=== PATIENT | male | born 1960 | race Asian ===

== ENCOUNTER 2022-05-07 08:19 | Emergency (ER) | payer OTHER ==
[~2022-05-07] VITALS: Ht 162.6 cm; Wt 54.3 kg
[2022-05-07 09:20] LABS: Basophils # (auto) 0 10 ^3/uL (0-0.2); Basophils % (auto) 1.3 % (0.0-2.0); Eosinophils # (auto) 0 10 ^3/uL (0-0.8); Eosinophils % (auto) 1.1 % (0.0-7.0); Hematocrit 39.9 % (41.0-53.0); Hemoglobin 13.2 g/dL (13.5-17.5); Lymphocytes # (auto) 0.7 10 ^3/uL (0.4-5.4); Lymphocytes % (auto) 26.8 % (10.0-50.0); Mean Corpuscular Hemoglobin 31.3 pg (28.0-32.0); Mean Corpuscular Hgb Conc. 33.1 g/dL (32.0-36.0); Mean Corpuscular Volume 94.3 fL (80.0-100.0); Monocytes # (auto) 0.2 10 ^3/uL (0-1.3); Neutrophils # (auto) 1.6 10 ^3/uL (1.6-8.6); Neutrophils % (auto) 61.8 % (37.0-80.0); Red Blood Cells 4.23 10^6/uL (4.5-5.90); Red Cell Distribution Width 12.8 % (11.8-14.3); White Blood Cell 2.6 10^3/uL (4.4-10.8)
[2022-05-07 09:24] LABS: Urine Bacteria NONE SEEN /hpf (None Seen); Urine Blood TRACE /uL (Negative); Urine WBC <1 /hpf (0 - 3)
[2022-05-07 09:35] LABS: Albumin 4.1 g/dL (3.4-5.0); Calcium 8.9 mg/dL (8.5-10.1); Potassium 4.1 mmol/L (3.5-5.1)
[2022-05-07 09:39] LABS: BUN/Creatinine Ratio 27.7; Bilirubin, Total 0.7 mg/dL (0.2-1.0); Total Protein 7.6 g/dL (6.4-8.2)
[2022-05-07] MEDS ORDERED: TAM04C PO (10:49)
[2022-05-07] MEDS ORDERED: HYDROcodone-ACET 5/325MG TAB PO ONE (11:00)
[2022-05-07 11:04] VITALS: BP 144/87
== END 2022-05-07 11:04 | disposition home or self-care (01) ==
LOC: ER 08:19
DX: N20.0 Calculus of kidney (principal); N28.1 Cyst of kidney, acquired
CPT/HCPCS: 36415; 74176; 80053; 81001; 85025; 93005

== ENCOUNTER → 2025-03-17 | Day surgery (SDC) | payer MEDICARE, MEDICAID ==
[~2025-03-17] VITALS: Ht 162.6 cm; Wt 56.7 kg
[~2025-03-17] MED LIST: B-COCAP34 OR; COEN30CA7 PO; LIDOCAINE 2% (LOCAL ANESTH.) PF 5ml SDV ONE; METOCLOPRAMIDE HCL 5MG/ml INJ 2ml VIAL ONE; ONDANSETRON HCL 4 MG/2 ML VIAL ONE; PROPOFOL 10 MG/ML 20 ML IV ONE; [UNRECOGNIZED DRUG - CODE] PO
--- NOTE | 2025-03-17 08:22 | DVHHP2 ---
GI H&P Pre-Op Assessment Date: 03/17/25 Chief complaint: abdominal pain HPI: per clinic note Past medical history: per clinic note Past surgical history: per clinic note Family history: per clinic note Physical exam: General: NAD, AAOX3 HEENT: PERRL, no scleral icterus, normal hearing, gums without lesions or bl eeding, oropharynx clear without erythema or exudate. Neck: Supple without enlargement of the thyroid, or lymphadenopathy. Chest: Normal size and shape, no tenderness, lung oropeza clear to auscultation and percussion, nonlabored breathing. Heart: RRR, no murmur Abdomen: non-distended, no tenderness to palpation, +BS, no hepatosplenomegaly Extremities: no edema Neurological: CN II-XII intact, sensation intact in all extremities, 5+ strength in all extremities Skin: No rashes, No jaundice Assessment: - abdominal pain Plan: - EGD - Risks (bleeding, infection, perforation, reaction to sedation medications and cardiopulmonary arrest) and benefit of the procedure were explained to patient. Patient agrees to undergo the procedure. BLANQUITA BAILEY MD Mar 17, 2025 08:22
[2025-03-17 08:23] VITALS: PULSE 66; RESP 15; TEMP 97.6; O2SAT 96
--- NOTE | 2025-03-17 08:24 | DVHOP2 ---
Operative Report DATE OF OPERATION: 03/17/25 PROCEDURE: Upper Endoscopy. PREOPERATIVE INDICATION: The patient is a 64 -year-old male undergoing endoscopy for epigastric and RUQ pain. POSTOPERATIVE DIAGNOSES: 1. Antral gastritis PROCEDURE PERFORMED BY: Adrien Alba SCOPE: Olympus videoendoscope. ASA CLASS: 2 PREOPERATIVE MEDICATIONS: MAC with Mercedes MILDRED PROCEDURE IN DETAIL: After obtaining an informed consent, the patient was placed on his back. The patient was then sedated with the above medications. A bite block was placed between his teeth. The endoscope was then passed through the oropharynx, into the esophagus, and through the stomach and pylorus up to the second and third part of the duodenum. The duodenum was normal in appearance. There was antral gastritis. Antral biopsies were obtained with cold biopsy forceps. The GE junction was normal in appearance at 37 cm. The esophagus was normal in appearance The endoscope was then withdrawn. The sadie ent tolerated the procedure well without difficulty. COMPLICATIONS : None SPECIMENS: Antral biopsies DISPOSITION: D/C to home PLAN: 1. Await for biopsy result ADRIEN ALBA MD Mar 17, 2025 08:24
--- NOTE | 2025-03-17 08:24 | DVHDS2 ---
Physician Discharge Progress N Final Diagnosis: Antral gastritis Operations or Procedures: Operations or Procedures EGD with cold biopsy Condition on Discharge: Good Disposition: Home Discharge Instructions: Diet: Regular Activity: No Restrictions, As Tolerated Medications: Resume previous home medication Follow Up Care: Discharge Statement: "Patient was advised to return to the ER or call 911 if any headaches, dizziness, shortness of breath, chest pain, abdominal pain, bleeding, fevers, or worsening of medical condition. Patient was counseled about treatment plan, medications, possible side effects, patientverbalized understanding. All questions were answered to the best of my ability. This discharge took greater then 30 minutes in planning, reviewing documentation, counseling the patient, and discussing with other team members." BLANQUITA BAILEY MD Mar 17, 2025 08:24
[2025-03-17 08:45] VITALS: BP 114/75; PULSE 67; RESP 15; O2SAT 98
== END | disposition home or self-care (01) ==
LOC: GI 06:53
PROVIDERS: ATTEND Internal Medicine Gastroenterology
DX: R10.11 Right upper quadrant pain (principal); K21.9 Gastro-esophageal reflux disease without esophagitis; K29.50 Unspecified chronic gastritis without bleeding; Z98.890 Other specified postprocedural states
CPT/HCPCS: 43239; 88305; 88342; J2003; J2405; J2704; J2765; J7030